=== PATIENT | female | born 1945 | race Caucasian/White ===

== ENCOUNTER 2022-03-18 04:07 | Day surgery (SDC) | payer OTHER ==
[2022-03-14 10:48] VITALS: BMI 23.6
[2022-03-18] MEDS ORDERED: PROPOFOL 20 ML ONE (14:23)
[2022-03-18] MEDS ORDERED: LIDOCAINE HCL/PF 2% SDV 5ML VIAL ONE (14:23)
[2022-03-18] MEDS ORDERED: DEXAMETHASONE SOD PHOSPHATE 4 MG/1 ML VIAL ONE (14:23)
[2022-03-18] MEDS ORDERED: MIDAZOLAM HCL 2 MG/2 ML SINGLE DOSE VIAL ONE (14:23)
[2022-03-18] MEDS ORDERED: ACETAMINOPHEN 1000 MG/100 ML BAG IVPB ONE ×2 (14:41→16:51)
[2022-03-18] MEDS ORDERED: IBUPROFEN 800 MG/8 ML IJ IVPB SCH (14:45)
[2022-03-18] MEDS ORDERED: DEXTROSE 5%-0.45% SALINE 1,000 ML IV SCH (14:45)
[2022-03-18] MEDS ORDERED: oxyCODONE HCL 5 MG TABLET PO PRN ×3 (15:02→16:14)
[2022-03-18] MEDS ORDERED: ONDANSETRON 4 MG/2 ML VIAL IVPUSH PRN ×2 (15:02→16:14)
[2022-03-18] MEDS ORDERED: LACTATED RINGERS SOLUTION 1,000 ML IV SCH ×2 (15:15→16:15)
[2022-03-18] MEDS ORDERED: ceFAZolin SODIUM 1 GM VIAL ONE (15:21)
[2022-03-18] MEDS ORDERED: SODIUM CHLORIDE 0.9% P/F 10 ML VIAL IJ ONE (15:21)
[2022-03-18] MEDS ORDERED: ETOMIDATE 20 MG/10 ML AMPUL IVPUSH ONE (15:40)
[2022-03-18] MEDS ORDERED: ceFAZolin 2 GRAM PREMIX BAG IVPB ONE (15:46)
[2022-03-18] MEDS ORDERED: LABETALOL HCL 5 MG/1 ML (100MG/20 ML VIAL) IVPUSH ONE ×3 (16:22→16:35)
[2022-03-18] MEDS ORDERED: ACETAMINOPHEN INJECTION 100 ML IVPB ONE (16:48)
[2022-03-18 18:28] VITALS: BP 164/70; PULSE 88; RESP 18; TEMP 97
== END 2022-03-18 18:15 | disposition home or self-care (01) ==
LOC: JASU-SURG 04:07
PROVIDERS: ATTEND Urology
PROC: 0TUD8JZ Supplement Urethra with Synthetic Substitute, Via Natural or Artificial Opening Endoscopic (ICD-10-PCS; principal; 2022-03-18 15:00)
DX: N39.3 Stress incontinence (female) (male) (principal); N36.42 Intrinsic sphincter deficiency (ISD); Z85.51 Personal history of malignant neoplasm of bladder
CPT/HCPCS: 51715; L8606; 94760